=== PATIENT | female | born 1995 | race Two or more races ===

== ENCOUNTER 2025-02-18 10:20 | Emergency (ER) | payer OTHER ==
[2025-02-18 10:29] VITALS: BP 108/80; PULSE 79; RESP 18; TEMP 98.6; BMI 29.3
[2025-02-18 12:25] LABS: HIV INTERPRETATION NEGATIVE (NEGATIVE)
[2025-02-18 12:26] LABS: HCV DIAGNOSTIC IN-HOUSE W/RFLX NON-REACTIVE (NONREACTIVE)
== END 2025-02-18 12:01 | disposition home or self-care (01) ==
LOC: JERFT 10:20
DX: S50.852A Superficial foreign body of left forearm, initial encounter (principal)
CPT/HCPCS: 36415; 73060-TC-LT-FY; 73090-TC-LT-FY; 86803; 87389; 99283-25

== ENCOUNTER 2025-04-17 22:13 | Emergency (ER) | payer OTHER ==
[2025-04-17 22:27] VITALS: BP 104/86; PULSE 75; RESP 18; TEMP 98; BMI 29.7
[2025-04-17] MEDS ORDERED: KETOROLAC TROMETHAMINE 30 MG/1 ML VIAL ONE (22:44)
[2025-04-17] MEDS: KETOROLAC TROMETHAMINE 30 MG/1 ML VIAL IM ONE (22:51)
[2025-04-17] MEDS: KETOROLAC TROMETHAMINE 15 MG/ML VIAL IM ONE (23:14)
== END 2025-04-17 23:30 | disposition left against medical advice (07) ==
LOC: JER 22:13
PROC: 3E0233Z Introduction of Anti-inflammatory into Muscle, Percutaneous Approach (ICD-10-PCS; principal; 2025-04-17)
DX: M54.50 Low back pain, unspecified (principal); V89.2XXA Person injured in unspecified motor-vehicle accident, traffic, initial encounter
CPT/HCPCS: 99284-25